=== PATIENT | female | born 1980 | race Caucasian/White ===

== ENCOUNTER 2016-10-26 11:45 | Observation (INO) | payer MEDICAID ==
[~2016-10-26] VITALS: Ht 165.1 cm; Wt 113.4 kg
[~2016-10-26 11:45] MED LIST: PNV1TABL76 PO
[2016-10-26] MEDS ORDERED: PREN-88 PO (12:49)
[2016-10-26] MEDS ORDERED: FOLI-43 PO (12:50)
== END 2016-10-26 15:15 | disposition home or self-care (01) ==
LOC: L&D 11:45
PROVIDERS: ADMIT Obstetrics & Gynecology; ATTEND Obstetrics & Gynecology
DX: O26.893 Other specified pregnancy related conditions, third trimester (principal); R10.9 Unspecified abdominal pain; Z3A.39 39 weeks gestation of pregnancy
CPT/HCPCS: 76805; 76818; G0378

== ENCOUNTER 2020-04-10 20:14 | Inpatient (IN) | payer SELFPAY ==
[~2020-04-10] VITALS: Ht 162.6 cm; Wt 87.1 kg
[~2020-04-10 20:14] MED LIST changes: +FOLI-43 PO; +PREN-88 PO
[2020-04-10 20:48] LABS: BASOPHILS % 0.3 % (0.0-2.0); EOSINOPHILS % 2.8 % (0.0-5.0); HEMATOCRIT. 36.4 % (36.0-48.0); LYMPHOCYTES % 31.7 % (20.0-50.0); MEAN CORPUSCULAR HEMOGLOBIN 25.7 pg (28.0-32.0); MEAN CORPUSCULAR VOLUME 78.2 fL (81.0-99.0); MONOCYTES % 7.6 % (2.0-8.0); NEUTROPHILS % 57.6 % (40.0-76.0); PLATELET 248 x1000/uL (130-400); RED BLOOD CELL COUNT 4.65 mill/uL (4.2-5.4); RED CELL DISTRIBUTION WIDTH 14.6 % (11.6-14.6)
[2020-04-10 20:55] LABS: CHLORIDE 107 mEq/L (98-107)
[2020-04-10] MEDS ORDERED: KETOROLAC 30MG/ML VIAL IV STA (20:56)
[2020-04-10 20:57] LABS: CLARITY URINE CLEAR (CLEAR); COLOR URINE YELLOW (YELLOW); KETONES URINE TRACE (NEGATIVE); LEUKOCYTE ESTERASE URINE 1+ (NEGATIVE); NITRITE URINE NEGATIVE (NEGATIVE); OCCULT BLOOD URINE TRACE (NEGATIVE); PH URINE 5.5 (4.5-8.0); PROTEIN URINE NEGATIVE (NEGATIVE); SPECIFIC GRAVITY URINE 1.031 (1.005-1.030); UROBILINOGEN URINE 0.2 E.U./dL (0.2-1.0)
[2020-04-10 20:59] LABS: ETHANOL BLOOD < 10 mg/dL; HCG SCREEN NEGATIVE; PARTIAL THROMBOPLASTIN TIME 28.9 sec (23.4-31.0); PROTHROMBIN TIME 10.9 sec (9.6-11.0)
[2020-04-10] MEDS ORDERED: ONDANSETRON HCL 4MG/2ML INJ IV ONE (21:00)
[2020-04-10] MEDS ORDERED: SODIUM CHLORIDE 0.9% 1,000 ML IV ONE (21:00)
[2020-04-10 21:13] LABS: *AMPHETAMINES SCREEN URINE NEGATIVE (NEGATIVE); *BARBITURATES SCREEN URINE NEGATIVE (NEGATIVE); *BENZODIAZEPINES SCREEN URINE NEGATIVE (NEGATIVE); *COCAINE SCREEN URINE NEGATIVE (NEGATIVE)
[2020-04-10 21:14] LABS: CANNABINOID URINE SCREEN NEGATIVE (NEGATIVE); METHADONE URINE SCREEN NEGATIVE (NEGATIVE); OPIATES URINE SCREEN NEGATIVE (NEGATIVE); PHENCYCLIDINE URINE SCREEN NEGATIVE (NEGATIVE)
[2020-04-10] MEDS ORDERED: ASPIRIN 325MG EC TABLET PO ONE (21:45)
[2020-04-10] MEDS ORDERED: AZITHROMYCIN 500 MG in DEXT 5% WATER 250 ML IV ONE (21:45)
[2020-04-10] MEDS ORDERED: CEFTRIAXONE 1 G PREMIX 50 ML IV ONE (21:45)
[2020-04-10] MEDS ORDERED: CLONIDINE 0.1MG TABLET PO PRN (23:30)
[2020-04-10] MEDS ORDERED: ALBUTEROL 6.7GM HFA INHALER ORI PRN (23:30)
[2020-04-10] MEDS ORDERED: MORPHINE SULFATE 2 MG/ML CPJ (NOT FOR IM USE) IV PRN (23:30)
[2020-04-10] MEDS ORDERED: MAGNESIUM/ALUMINUM HYDROXIDE/SIMETHICONE 30ML UDC PO PRN (23:30)
[2020-04-10] MEDS ORDERED: GUAIFENESIN 200MG/10ML SUGAR FREE UDC PO PRN (23:30)
[2020-04-10] MEDS ORDERED: DIPHENHYDRAMINE 50MG/ML VIAL IV PRN (23:30)
[2020-04-10] MEDS ORDERED: DOCUSATE SODIUM 100MG CAPSULE PO PRN (23:30)
[2020-04-10] MEDS ORDERED: ACETAMINOPHEN 325MG TABLET PO PRN (23:30)
[2020-04-10] MEDS ORDERED: LORAZEPAM 2MG/ML CPJ IV PRN (23:30)
[2020-04-10] MEDS ORDERED: ONDANSETRON HCL 4MG/2ML INJ IV PRN (23:30)
[2020-04-10] MEDS ORDERED: HYDROCODONE/ACETAMINOPHEN 5/325MG TABLET PO PRN (23:30)
[2020-04-11 07:08] LABS: BASOPHILS % 0.5 % (0.0-2.0); EOSINOPHILS % 2.9 % (0.0-5.0); HEMATOCRIT. 33.6 % (36.0-48.0); LYMPHOCYTES % 26.4 % (20.0-50.0); MEAN CORPUSCULAR VOLUME 79.8 fL (81.0-99.0); MEAN PLATELET VOLUME 9.2 fl (7.4-10.4); MONOCYTES % 8.4 % (2.0-8.0); NEUTROPHILS % 61.8 % (40.0-76.0); PLATELET 210 x1000/uL (130-400); RED BLOOD CELL COUNT 4.21 mill/uL (4.2-5.4); RED CELL DISTRIBUTION WIDTH 14.6 % (11.6-14.6)
[2020-04-11 07:19] LABS: CHLORIDE 108 mEq/L (98-107)
[2020-04-11 08:45] VITALS: BP 96/56
[2020-04-11 09:00] VITALS: BP 96/56
[2020-04-11] MEDS: SODIUM CHLORIDE 0.45% 1,000 ML IV SCH (11:46)
[2020-04-11 12:00] VITALS: BP 98/59
[2020-04-11 12:32] LABS: T4 FREE 1.15 ng/dL (0.76-1.46)
[2020-04-11] MEDS: SODIUM CHLORIDE 0.9% INJ 3ML FLUSH IVF SCH ×2 (14:00→23:15)
[2020-04-11 16:00] VITALS: BP 84/54
[2020-04-11 17:33] LABS: CREATINE KINASE 43 IU/L (26-192)
[2020-04-11 17:34] LABS: CREATINE KINASE MB FRACTION < 1.0 ng/mL (0.5-3.6)
[2020-04-11 18:00] VITALS: BP 97/61
[2020-04-11 20:00] VITALS: BP_SYST 104; BP_SYST 105; BP_SYST 95; BP_DIAS 58; BP_DIAS 63; BP_DIAS 68
[2020-04-11] MEDS ORDERED: CEFTRIAXONE 1,000 MG in DEXTROSE 5% WATER 50 ML IV SCH (21:00)
[2020-04-11] MEDS: ENOXAPARIN 40MG/0.4ML SYR SUBCUT SCH ×2 (23:13→23:14)
[2020-04-12] VITALS: BP 87/56
[2020-04-12 00:59] LABS: CREATINE KINASE 37 IU/L (26-192)
[2020-04-12 01:00] LABS: CREATINE KINASE MB FRACTION < 1.0 ng/mL (0.5-3.6)
[2020-04-12] MEDS: SODIUM CHLORIDE 0.45% 1,000 ML IV SCH ×2 (02:14→17:21)
[2020-04-12 04:30] VITALS: BP 97/56
[2020-04-12] MEDS: SODIUM CHLORIDE 0.9% INJ 3ML FLUSH IVF SCH ×3 (06:31→19:40)
[2020-04-12 08:00] VITALS: BP 99/57
[2020-04-12 08:04] LABS: CREATINE KINASE 33 IU/L (26-192)
[2020-04-12 08:05] LABS: CREATINE KINASE MB FRACTION < 1.0 ng/mL (0.5-3.6)
[2020-04-12 12:00] VITALS: BP_SYST 111; BP_SYST 115; BP_SYST 119; BP_DIAS 59; BP_DIAS 62; BP_DIAS 68
[2020-04-12 16:00] VITALS: BP 102/65
[2020-04-12] MEDS ORDERED: CEFTRIAXONE 1,000 MG in DEXTROSE 5% WATER 50 ML IV SCH (17:00)
[2020-04-12] MEDS: ENOXAPARIN 40MG/0.4ML SYR SUBCUT SCH (19:40)
[2020-04-13] MEDS: SODIUM CHLORIDE 0.45% 1,000 ML IV SCH (04:47)
[2020-04-13] MEDS: SODIUM CHLORIDE 0.9% INJ 3ML FLUSH IVF SCH (04:47)
[2020-04-13 08:00] VITALS: BP 98/59
[2020-04-13 09:01] VITALS: BP 101/58
== END 2020-04-13 11:10 | disposition home or self-care (01) | DRG 137 ==
LOC: ER 20:14 → 7WST 22:04 → ENRESERV 04-11 07:55 → ER 04-11 08:33 → 5WST 04-12 14:30 → 7WST 04-12 15:21
PROVIDERS: ADMIT Internal Medicine; ATTEND Internal Medicine
DX: U07.1 COVID-19 (principal); J12.82 Pneumonia due to coronavirus disease 2019; N39.0 Urinary tract infection, site not specified; J98.11 Atelectasis; N28.9 Disorder of kidney and ureter, unspecified; Z79.1 Long term (current) use of non-steroidal anti-inflammatories (NSAID); Z79.899 Other long term (current) drug therapy
CPT/HCPCS: 36415; 71045; 74176; 76770; 80053; 80061; 80305; 80320; 81003; 82550; 82553; 83036; 83605; 83880; 84439; 84443; 84484; 84703; 85025; 85379; 93005; 93970; 99285; J0456; J0696; J1650; J1885; J2405; J7030; J7060; U0003; G0480

== ENCOUNTER 2020-08-04 18:06 | Emergency (ER) | payer MEDICAID, OTHER ==
[~2020-08-04] VITALS: Ht 160 cm; Wt 84.0 kg
[2020-08-04 18:07] VITALS: BP 127/68
[2020-08-04] MEDS ORDERED: ACETAMINOPHEN 325MG TABLET PO STA (20:18)
[2020-08-04] MEDS ORDERED: AZIT250T12 MT (20:41)
== END 2020-08-04 21:00 | disposition home or self-care (01) ==
LOC: ER 18:06
DX: J18.9 Pneumonia, unspecified organism (principal); B34.9 Viral infection, unspecified; Z20.822 Contact with and (suspected) exposure to COVID-19; Z86.19 Personal history of other infectious and parasitic diseases
CPT/HCPCS: 71045; 81025; 99284

== ENCOUNTER 2021-04-07 16:09 | Emergency (ER) | payer OTHER ==
[~2021-04-07] VITALS: Ht 162.6 cm; Wt 93.0 kg
[~2021-04-07 16:09] MED LIST changes: +AZIT250T12 MT; -FOLI-43 PO; +IBUP-2028 PO; -PREN-88 PO
[2021-04-07 16:13] VITALS: BP 121/79
[2021-04-08] MEDS ORDERED: IBUP-2029 MT (11:57)
[2021-04-08] MEDS ORDERED: ONDA4TAB5 MT (11:57)
== END 2021-04-07 20:57 | disposition left against medical advice (07) ==
LOC: ER 16:09
DX: Z53.21 Procedure and treatment not carried out due to patient leaving prior to being seen by health care provider (principal)

== ENCOUNTER 2021-04-08 08:39 | Emergency (ER) | payer OTHER ==
[~2021-04-08] VITALS: Ht 160 cm; Wt 92.0 kg
[2021-04-08] MEDS ORDERED: ONDANSETRON 4MG ODT PO STA (08:55)
[2021-04-08] MEDS ORDERED: ACETAMINOPHEN 325MG TABLET PO STA (08:55)
[2021-04-08 09:59] LABS: BASOPHILS % 0.5 % (0.0-2.0); EOSINOPHILS % 8.7 % (0.0-5.0); HEMATOCRIT. 47.5 % (36.0-48.0); HEMOGLOBIN. 15.4 g/dL (12.0-16.0); LYMPHOCYTES % 22.8 % (20.0-50.0); MEAN CORPUSCULAR HEMOGLOBIN 28.4 pg (28.0-32.0); MEAN CORPUSCULAR VOLUME 87.7 fL (81.0-99.0); MEAN PLATELET VOLUME 8.4 fl (7.4-10.4); MONOCYTES % 5.6 % (2.0-8.0); NEUTROPHILS % 62.4 % (40.0-76.0); PLATELET 166 x1000/uL (130-400); RED BLOOD CELL COUNT 5.42 mill/uL (4.2-5.4); RED CELL DISTRIBUTION WIDTH 12.3 % (11.6-14.6)
[2021-04-08 10:05] LABS: CHLORIDE 107 mEq/L (98-107)
[2021-04-08] MEDS ORDERED: IBUP-2029 MT (11:57)
[2021-04-08] MEDS ORDERED: ONDA4TAB5 MT (11:57)
[2021-04-08 12:00] VITALS: BP 106/55
== END 2021-04-08 12:12 | disposition home or self-care (01) ==
LOC: ER 08:39
DX: R51.9 Headache, unspecified (principal); R11.0 Nausea; Z98.51 Tubal ligation status
CPT/HCPCS: 36415; 70450; 80053; 85025; 93005; 99285; Q0162

== ENCOUNTER 2022-01-17 18:02 | Emergency (ER) | payer OTHER ==
[~2022-01-17] VITALS: Ht 162.6 cm; Wt 85.0 kg
[~2022-01-17 18:02] MED LIST changes: +IBUP-2029 MT; +ONDA4TAB5 MT
[2022-01-17 18:14] VITALS: BP 111/69
[2022-01-17] MEDS ORDERED: TOPUD PO (21:16)
[2022-01-17] MEDS ORDERED: IBUP-2028 MT (21:16)
== END 2022-01-17 21:42 | disposition home or self-care (01) ==
LOC: ER 18:02
DX: J06.9 Acute upper respiratory infection, unspecified (principal); R05.9 Cough, unspecified; R09.81 Nasal congestion; Z98.51 Tubal ligation status; Z79.899 Other long term (current) drug therapy; Z20.822 Contact with and (suspected) exposure to COVID-19
CPT/HCPCS: 87426; 87804; 99283; C9803

== ENCOUNTER 2022-04-04 10:38 | Emergency (ER) | payer OTHER ==
[~2022-04-04] VITALS: Ht 162.6 cm; Wt 85.0 kg
[~2022-04-04 10:38] MED LIST changes: +IBUP-2028 MT; +TOPUD PO
[2022-04-04 11:04] VITALS: BP 134/97
[2022-04-04] MEDS ORDERED: KETOROLAC 60MG/2ML VIAL IM ONE (13:15)
[2022-04-04] MEDS ORDERED: CYCL10TA21 MT (13:57)
[2022-04-04] MEDS ORDERED: IBUP-2028 MT (13:57)
[2022-04-04] MEDS ORDERED: IBUPROFEN 600MG TABLET PO ONE (14:15)
== END 2022-04-04 14:34 | disposition home or self-care (01) ==
LOC: ER 10:38
DX: M54.12 Radiculopathy, cervical region (principal); M79.602 Pain in left arm; Z98.51 Tubal ligation status; Z79.899 Other long term (current) drug therapy
CPT/HCPCS: 73030; 81025; 99283; J1885

== ENCOUNTER 2023-02-19 17:49 | Emergency (ER) | payer OTHER ==
[~2023-02-19] VITALS: Ht 162.6 cm; Wt 86.0 kg
[~2023-02-19 17:49] MED LIST changes: +CYCL10TA21 MT
[2023-02-19 17:55] VITALS: O2SAT 98
[2023-02-19] MEDS ORDERED: ACETAMINOPHEN 325MG TABLET PO ONE (18:15)
[2023-02-19] MEDS ORDERED: TOPUD PO (19:04)
[2023-02-19] MEDS ORDERED: TUSSL MT (19:04)
[2023-02-19 19:24] VITALS: BP 112/54; PULSE 102; RESP 16; TEMP 98.3
== END 2023-02-19 19:25 | disposition home or self-care (01) ==
LOC: ER 17:49
DX: B34.9 Viral infection, unspecified (principal); Z79.899 Other long term (current) drug therapy; Z98.51 Tubal ligation status; Z20.822 Contact with and (suspected) exposure to COVID-19
CPT/HCPCS: 99284; 71045; 87426; 87804 ×2; C9803

== ENCOUNTER 2023-02-26 13:25 | Emergency (ER) | payer OTHER ==
[~2023-02-26] VITALS: Ht 162.6 cm; Wt 85.3 kg
[~2023-02-26 13:25] MED LIST changes: +TUSSL MT
[2023-02-26 13:43] VITALS: O2SAT 100
[2023-02-26 16:07] LABS: BASOPHILS % 0.4 % (0.0-2.0); EOSINOPHILS % 0.9 % (0.0-5.0); HEMATOCRIT. 44.2 % (36.0-48.0); HEMOGLOBIN. 14.2 g/dL (12.0-16.0); MEAN CORPUSCULAR HEMOGLOBIN 27.2 pg (28.0-32.0); MEAN CORPUSCULAR HGB CONC 32.1 g/dL (31.0-37.0); MEAN CORPUSCULAR VOLUME 84.8 fL (81.0-99.0); MEAN PLATELET VOLUME 8.6 fl (7.4-10.4); MONOCYTES % 8.7 % (2.0-8.0); PLATELET 266 x1000/uL (130-400); RED BLOOD CELL COUNT 5.21 mill/uL (4.2-5.4); RED CELL DISTRIBUTION WIDTH 13.5 % (11.6-14.6); WHITE BLOOD COUNT 7.4 x1000/uL (4.5-11.0)
[2023-02-26 16:19] LABS: ALANINE AMINOTRANSFERASE < 7 IU/L (10-49); ALBUMIN 4.3 g/dL (3.2-4.8); ASPARTATE AMINOTRANSFERASE 18 IU/L (<34); BILIRUBIN TOTAL 1.1 mg/dL (0.1-1.0); CALCIUM 9.5 mg/dL (8.7-10.4); CARBON DIOXIDE 28 mEq/L (21-32); CHLORIDE 104 mEq/L (98-107); CREATININE 0.6 mg/dL (0.6-1.0); GLUCOSE 86 mg/dL (70-105); POTASSIUM 3.8 mEq/L (3.5-5.1); PROTEIN TOTAL 7.3 g/dL (6.0-8.3); SODIUM 141 mEq/L (136-145); TROPONIN I HIGH SENSITIVITY < 4 ng/L (3.0-34); UREA NITROGEN BLOOD 12 mg/dL (9-23)
[2023-02-26 16:29] LABS: HCG SCREEN NEGATIVE
[2023-02-26] MEDS ORDERED: BENZ150C3 MT (16:49)
[2023-02-26 17:00] VITALS: BP 130/91
[2023-02-26] MEDS ORDERED: KETOROLAC 30MG/ML VIAL IM ONE (17:00)
[2023-02-26 17:12] VITALS: PULSE 85; RESP 16; TEMP 98.7
== END 2023-02-26 17:13 | disposition home or self-care (01) ==
LOC: ER 13:56
DX: J40 Bronchitis, not specified as acute or chronic (principal); Z98.51 Tubal ligation status
CPT/HCPCS: 36415; 71045; 80053; 84484; 84703; 85025; 85379; 93005; 99285

== ENCOUNTER 2024-01-06 16:29 | Emergency (ER) | payer SELFPAY ==
[~2024-01-06] VITALS: Ht 162.6 cm; Wt 74.9 kg
[~2024-01-06 16:29] MED LIST changes: +BENZ150C8 MT
[2024-01-06 16:32] VITALS: BP 130/97; PULSE 100; RESP 16; TEMP 98.3; O2SAT 99
== END 2024-01-06 20:50 | disposition left against medical advice (07) ==
LOC: ER 16:29
DX: M79.604 Pain in right leg (principal); Z53.21 Procedure and treatment not carried out due to patient leaving prior to being seen by health care provider; Z98.51 Tubal ligation status

== ENCOUNTER 2025-01-24 10:01 | Emergency (ER) | payer MEDICAID ==
[~2025-01-24] VITALS: Ht 165.1 cm; Wt 82.0 kg
[~2025-01-24 10:01] MED LIST changes: +IBUP-1455 MT; -IBUP-2029 MT
[2025-01-24 10:23] VITALS: O2SAT 98
[2025-01-24] MEDS ORDERED: IBUP-1455 MT (14:35)
[2025-01-24 15:18] VITALS: BP 109/72; PULSE 81; RESP 16; TEMP 36.7; O2SAT 100
== END 2025-01-24 15:19 | disposition home or self-care (01) ==
LOC: ER 10:01
DX: J02.8 Acute pharyngitis due to other specified organisms (principal); Z20.822 Contact with and (suspected) exposure to COVID-19
CPT/HCPCS: 87070; 87426; 87430; 99283